=== PATIENT | female | born 1985 | race Caucasian/White ===

== ENCOUNTER 2024-02-22 22:01 | Emergency (ER) | payer OTHER ==
[~2024-02-22] VITALS: Ht 162.6 cm; Wt 59.0 kg
[2024-02-22 22:24] VITALS: BP 124/76; PULSE 105; RESP 18; TEMP 98.2; O2SAT 100
== END 2024-02-23 00:38 | disposition left against medical advice (07) ==
LOC: ER 22:01
DX: R51.9 Headache, unspecified (principal); Z53.21 Procedure and treatment not carried out due to patient leaving prior to being seen by health care provider
CPT/HCPCS: 99281